=== PATIENT | female | born 1985 | race Caucasian/White ===

== ENCOUNTER 2017-12-16 20:33 | Emergency (ER) | payer OTHER ==
[~2017-12-16] VITALS: Ht 172.7 cm; Wt 84.2 kg
[~2017-12-16 20:33] MED LIST: PENI500T PO; Z.0.NO CURRENT MEDS
[2017-12-16 20:38] VITALS: BP 132/58; PULSE 95; RESP 18; TEMP 98.4; O2SAT 98
[2017-12-16] MEDS ORDERED: IBUP-232 PO (21:00)
[2017-12-16] MEDS ORDERED: ORPHENADRINE INJ 60 MG/2 ML AMP IM ONE (21:00)
[2017-12-16] MEDS ORDERED: KETOROLAC TROMETHAMINE 60 MG/2 ML (IM) VIAL IM ONE (21:00)
[2017-12-16] MEDS ORDERED: NORC5TAB PO (21:00)
[2017-12-16] MEDS ORDERED: CYCL10TA PO (21:00)
--- NOTE | 2017-12-16 21:00 | PD ---
HPI Chief Complaint: Musculoskeletal Complaint Time Seen by Provider: 20:47 Travel History International Travel<30 days: No Contact w/Intl Traveler<30days: No Traveled to known affect area: No History of Present Illness HPI The patient is a 32-year-old female who presents to the emergency department for back pain. The patient was at work earlier today, [employer], when she hurt her back. The patient states she was on a short ladder, when the ladder felt like it was going to give away and she quickly turned to get off of the ladder. The patient felt immediate pain in the low back. The pain is located over the right paravertebral muscle in the right sacroiliac, initially radiated down the left leg with numbness, however, the radiculopathy with numbness has resolved. She denies any history of chronic back pain. She denies any current weakness or numbness. She denies any urinary incontinence. The pain is worse with extension, flexion, and rotation of the thorax. Symptoms are moderate. PFSH Past Medical History ADHD: Yes Asthma: Yes Depression: Yes Diabetes: No Diminished Hearing: No Psychiatric: Yes Immunizations Current: No Influenza Vaccination: Yes ?: Unknown LMP: 12/09/17 Past Surgical History Surgical History: No Previous Surgery Social History Alcohol Use: No Tobacco Use: Yes (ONE PPD) Substance Use: No Allergies-Medications (Allergen,Severity, Reaction): Coded Allergies: No Known Allergies (Verified Adverse Reaction, Unknown, 12/16/17) Reported Meds & Prescriptions Reported Meds & Active Scripts Active No Active Prescriptions or Reported Medications Review of Systems Except as stated in HPI: all other systems reviewed are Neg Musculoskeletal: Positive: Limited ROM, Pain Skin: No Rash (No rash) Neurologic: Positive: Sensory Disturbance (Initially had numbness to left lower extremity which has resolved) Physical Exam Narrative GENERAL: Awake, alert, pleasant 32-year-old female who appears her stated age and is in no acute respiratory distress. SKIN: Focused skin assessment warm/dry. HEAD: Atraumatic. Normocephalic. EYES: No injection or drainage.. MUSCULOSKELETAL: No obvious deformities. No clubbing. No cyanosis. No edema. Plantarflexion on the left is 5 out of 5. Extension left knee is 5 out of 5. Flexion left hip is 5 out of 5. Positive dorsalis pedal pulses bilaterally. Back: No tenderness over the thoracic or lumbar vertebrae. Mild tenderness of the right paravertebral muscle with visible spasm. Mild tenderness of the right sacroiliac. Pain was elicited with rotation to left and right of the back as well as extension and flexion. NEUROLOGICAL: Awake and alert. No obvious cranial nerve deficits. Motor grossly within normal limits. Normal speech. Sensation was intact to lower extremities bilaterally. PSYCHIATRIC: Appropriate mood and affect; insight and judgment normal. Data Data Last Documented VS Vital Signs Date Time Temp Pulse Resp B/P (MAP) Pulse Ox O2 Delivery O2 Flow Rate FiO2 12/16/17 20:48 18 12/16/17 20:38 98.4 95 132/58 (82) 98 Orders Orders Ketorolac Inj (Toradol Inj) (12/16/17 21:00) Orphenadrine Inj (Norflex Inj) (12/16/17 21:00) Ed Discharge Order (12/16/17 20:55) MDM Medical Decision Making Medical Screen Exam Complete: Yes Emergency Medical Condition: Yes Medical Record Reviewed: Yes Differential Diagnosis Differential diagnosis includes back strain, herniated disc, spinal stenosis, back pain with radiculopathy, compression fracture. Narrative Course The patient's back pain is consistent with musculoskeletal pain from twisting quickly, is elicited with movement. She has no weakness or numbness of the lower extremities. No imaging indicated. The patient was administered Toradol and Norflex 60 mg IM. She is advised no heavy lifting for 1 week, ice or heat to the affected area, medications as directed. She is advised to follow-up with her primary physician and/or occupational health physician. Return if symptoms worsen or progress. Diagnosis Primary Impression: Back pain Qualified Codes: M54.5 - Low back pain Patient Instructions: General Instructions Additional Instructions: Medications as directed. Follow-up with your occupational health physician. Ice and/or heat to the affected area. No heavy lifting for 1 week. Med/Other Pt SpecificInfo: Prescription(s) given Scripts Hydrocodone-Acetaminophen (Elsinore) 5 Mg-325 Mg Tab 1 TAB PO Q6H Y for PAIN, #10 TAB 0 Refills Prov: Francisco Delgado MD 12/16/17 Cyclobenzaprine (Flexeril) 10 Mg Tab 10 MG PO TID for Muscle Spasm for 5 Days, #15 TAB 0 Refills Prov: Francisco Delgado MD 12/16/17 Ibuprofen (Ibuprofen) 600 Mg Tab 600 MG PO Q6H Y for Pain/Inflammation, #20 TAB 0 Refills Prov: Francisco Delgado MD 12/16/17 Disposition: 01 DISCHARGE HOME Condition: Stable Francisco Delgado MD December 16, 2017 21:00
[2017-12-16 21:18] VITALS: BP 123/69
== END 2017-12-16 21:25 | disposition home or self-care (01) ==
LOC: PHEFT 20:33
DX: M54.9 Dorsalgia, unspecified (principal); F90.9 Attention-deficit hyperactivity disorder, unspecified type; J45.909 Unspecified asthma, uncomplicated; F32.9 Major depressive disorder, single episode, unspecified; F17.200 Nicotine dependence, unspecified, uncomplicated
CPT/HCPCS: 96372; 99283; J1885; J2360